=== PATIENT | female | born 1945 | race Two or more races ===

== ENCOUNTER 2023-04-03 16:44 | Emergency (ER) | payer OTHER ==
[~2023-04-03] VITALS: Ht 147.3 cm; Wt 66.0 kg
[2023-04-03 22:21] VITALS: PULSE 71; RESP 18; O2SAT 99
[2023-04-03] MEDS ORDERED: cloNIDine HCL 0.1 MG TAB PO ONE (22:30)
[2023-04-04 00:05] VITALS: BP 122/74; PULSE 71; RESP 17; O2SAT 97
== END 2023-04-04 00:07 | disposition home or self-care (01) ==
LOC: EDBD 16:44 → ER 16:44
DX: I10 Essential (primary) hypertension (principal); R05.9 Cough, unspecified; R09.81 Nasal congestion
CPT/HCPCS: 93005